=== PATIENT | male | born 1955 | race Two or more races ===

== ENCOUNTER 2017-05-04 01:20 | Emergency (ER) | payer OTHER ==
[~2017-05-04] VITALS: Ht 177.8 cm; Wt 81.6 kg
--- NOTE | 2017-05-04 02:14 | NUR ---
PT ARRIVES TO ED C/O SOB, CHEST PAIN, AND LIGHTHEADEDNESS X 3 DAYS. AT BEDSIDE
[2017-05-04] MEDS ORDERED: BENECAR (02:58)
--- NOTE | 2017-05-04 03:05 | NUR ---
Dr. Villagran at bedside for MSE
[2017-05-04] MEDS ORDERED: IV NORMAL SALINE 1000 ML BAG IV ONE (03:15)
--- NOTE | 2017-05-04 03:26 | NUR ---
XRAY AT PT BEDSIDE
[2017-05-04 04:07] LABS: BASOPHILS # (AUTO) 0.1 K/uL (0.0-8.0); BASOPHILS % (AUTO) 0.8 % (0.0-2.0); EOSINOPHILS # (AUTO) 0.1 K/uL (0.0-0.7); EOSINOPHILS % (AUTO) 1.4 % (0.0-7.0); HEMATOCRIT 46.6 % (40-50); HEMOGLOBIN 15.6 G/DL (14.0-18.0); LYMPHOCYTES # (AUTO) 0.8 K/UL (0.8-4.8); LYMPHOCYTES % (AUTO) 9.4 % (20.5-51.5); MEAN CORPUSCULAR HEMOGLOBIN 30.2 UUG (27.0-31.0); MEAN CORPUSCULAR HGB CONC 33 g/dL (32.0-37.0); MEAN CORPUSCULAR VOLUME 90.4 FL (82.0-92.0); MONOCYTES # (AUTO) 0.4 K/UL (0.1-1.30); MONOCYTES % (AUTO) 4.8 % (0.0-11.0); NEUTROPHILS # (AUTO) 7.1 K/UL (1.8-8.9); NEUTROPHILS % (AUTO) 83.6 % (38.5-71.5); PLATELET COUNT (AUTO) 124 K/UL (150-450); RED BLOOD CELL COUNT(AUTO) 5.15 MIL/UL (4.7-6.1); WHITE BLOOD COUNT (AUTO) 8.5 K/UL (4.0-11.2)
[2017-05-04 04:26] LABS: BILIRUBIN,DIRECT 0.1 mg/dL (0.0-0.2); BILIRUBIN,TOTAL 0.6 mg/dL (0.2-1.0); POTASSIUM 3.8 mmol/L (3.5-5.1); TOTAL PROTEIN, SERUM 7.4 g/dL (6.4-8.2)
--- NOTE | 2017-05-04 04:38 | NUR ---
PT RESTING IN A POSITION OF COMFORT. NO ACUTE DISTRESS NOTED AT THIS TIME.
--- NOTE | 2017-05-04 05:04 | NUR ---
PT RESTING IN A POSITION OF COMFORT. NO ACUTE DISTRESS NOTED AT THIS TIME.
--- NOTE | 2017-05-04 05:40 | NUR ---
Pt stable for discharge per MD. IV dc'd, catheter intact. Drsg applied, no problems noted to site. Pt given ACI. PT verbalized understanding of dc instructions. Pt ambulated out of ER with steady gait.
[2017-05-04 06:20] VITALS: BP 126/81
== END 2017-05-04 05:40 | disposition home or self-care (01) ==
LOC: ER 01:33
DX: R07.89 Other chest pain (principal); F41.9 Anxiety disorder, unspecified; I10 Essential (primary) hypertension
CPT/HCPCS: 36415; 70030-TC; 71045; 85025; 85730; 93005; A4663; J7030